=== PATIENT | female | born 1975 ===

== ENCOUNTER 2021-03-07 03:33 | Inpatient (IN) | payer OTHER ==
[~2021-03-07] VITALS: Ht 167.6 cm; Wt 131.5 kg
--- NOTE | 2021-03-07 04:52 | NUR ---
SE RECIBE FEMINA ALERTA Y ORIENTADA POR LAYA ESFERAS, EN AMBULANCIA. REFIERE QUE PRESENTA DIFICULTAD RESPIRATORIA, TOS Y FIEBRE DE ELISEO SEMANA DE EVOLUCION. SE ORIENTA SOBRE TRATAMIENTO. SE J CARLOS MUESTRAS DE LABORATORIO ORDENADAS. SE CANALIZA CON AREA DE VENOPUNCION HAYLEE DE EDEMA O ENROJECIMIENTO. SE ADMINISTRAN MEDICAMENTOS ORDENADOS. [place] OFRECE TRATAMIENTO DE TERAPIA RESPIRATORIA. MR. GREY TRANSPORTA A PACIENTE A ESTUDIOS DE RADIOLOGIA.
--- NOTE | 2021-03-07 07:00 | NUR ---
SE RECIBE PACIENTE FEMENINA ALERTA Y ORIENTADA EN SECCION K8 CONECTADA A MONITOR CARDIACO, OXIMETRIA Y VENTURY MASK AL 50%. AREA DE VENUPUNCION PATENTE Y HAYLEE DE EDEMA Y ENROJECIMIENTO. SE CONTINUA CON SANTOS TRATAMIENTO Y RE-EVALUACION RADHA LAS ORDENES MEDICAS. SE LE PHILOMENA EN TODO MOMENTO PRIVACIDAD Y SEGURIDAD.
== END 2021-03-20 06:06 | disposition expired | DRG 207 ==
LOC: ER 03:33 → MEDJ 09:14 → ICU 03-12 08:54
PROVIDERS: ADMIT Internal Medicine; ATTEND Internal Medicine
PROC: 4A033R1 Measurement of Arterial Saturation, Peripheral, Percutaneous Approach (ICD-10-PCS; 2021-03-07)
PROC: 8E0ZXY6 Isolation (ICD-10-PCS; 2021-03-07)
PROC: 3E0F7SF Introduction of Other Gas into Respiratory Tract, Via Natural or Artificial Opening (ICD-10-PCS; 2021-03-07)
PROC: 4A12X4Z Monitoring of Cardiac Electrical Activity, External Approach (ICD-10-PCS; 2021-03-07)
PROC: XW033E5 Introduction of Remdesivir Anti-infective into Peripheral Vein, Percutaneous Approach, New Technology Group 5 (ICD-10-PCS; 2021-03-08)
PROC: 5A1955Z Respiratory Ventilation, Greater than 96 Consecutive Hours (ICD-10-PCS; principal; 2021-03-12)
PROC: 0BH17EZ Insertion of Endotracheal Airway into Trachea, Via Natural or Artificial Opening (ICD-10-PCS; 2021-03-12)
DX: U07.1 COVID-19 (principal); J12.82 Pneumonia due to coronavirus disease 2019; J96.01 Acute respiratory failure with hypoxia; R65.21 Severe sepsis with septic shock; A41.9 Sepsis, unspecified organism; J15.1 Pneumonia due to Pseudomonas; I46.8 Cardiac arrest due to other underlying condition; E86.0 Dehydration; Z20.822 Contact with and (suspected) exposure to COVID-19; K59.00 Constipation, unspecified; T81.82XA Emphysema (subcutaneous) resulting from a procedure, initial encounter; Y83.8 Other surgical procedures as the cause of abnormal reaction of the patient, or of later complication, without mention of misadventure at the time of the procedure; I48.91 Unspecified atrial fibrillation; E09.65 Drug or chemical induced diabetes mellitus with hyperglycemia; E66.01 Morbid (severe) obesity due to excess calories; D69.49 Other primary thrombocytopenia; D64.9 Anemia, unspecified; Z53.29 Procedure and treatment not carried out because of patient's decision for other reasons